=== PATIENT | female | born 1980 | race Caucasian/White ===

== ENCOUNTER 2020-09-21 06:42 | Day surgery (SDC) | payer BC ==
[~2020-09-21] VITALS: Ht 160 cm; Wt 122.9 kg
[2020-09-21] VITALS (9 sets, daily range): BP systolic 104–136; BP diastolic 65–79; PULSE 80–97; TEMP 97.8
[2020-09-21] MEDS ORDERED: ASPIRIN E.C. 8181 MG PO (06:57)
[2020-09-21] MEDS ORDERED: NORVASC2.5 MG PO (06:57)
[2020-09-21] MEDS ORDERED: PRAVACHOL 20MG20 MG PO (06:57)
[2020-09-21] MEDS ORDERED: PAXIL 20MG20 MG PO (06:58)
[2020-09-21 08:04] LABS: HEMATOCRIT 40.5 % (37.0-47.0); HEMOGLOBIN 13.3 g/dl (12.5-16.0); MEAN CELL VOLUME 84 fl (80.0-100.0); MEAN CORPUSCULAR HEMOGLOBIN 27 pg (27.0-31.0); MEAN CORPUSCULAR HGB CONC 33 g/dl (33.0-37.0); MEAN PLATELET VOLUME 9.5 fl (7.4-10.4); PLATELET COUNT 373 K/mm3 (130-400); RED BLOOD COUNT 4.85 M/mm3 (4.10-5.30); REDCELL DISTRIBUTION WIDTH-CV 13.5 % (11.5-14.5)
[2020-09-21 08:10] LABS: INR 1.1 (0.8-3.0); PROTHROMBIN TIME 12.1 SECONDS (9.7-12.8)
[2020-09-21] MEDS ORDERED: NEXPLANON68 MG ID (08:10)
[2020-09-21 08:13] LABS: PARTIAL THROMBOPLASTIN TIME 34.4 SECONDS (26.0-37.0)
[2020-09-21 08:14] LABS: CALCIUM 9.4 mg/dL (8.4-10.2); CREATININE, serum 0.71 (0.52-1.25); POTASSIUM 4.1 mmol/L (3.4-5.0)
--- NOTE | 2020-09-21 09:10 | NUR ---
SEE MERGE DOCUMENTATION FOR MEDICATION ADMINISTRATION TIMES AND INTRA/POST PROCEDURE SEDATION ASSESSMENTS. RIGHT HAND BARBEAU TEST POSITIVE.
[2020-09-21] MEDS ORDERED: LOVAZA1 GM PO (10:30)
--- NOTE | 2020-09-21 12:40 | NUR ---
DC instructions reviewed with pt, who expresses understanding. Air removed from TR band in 2-3 ml increments without issue. Puncture site covered with 2x2 and bandaid. Arm board sent with pt for support of rt wrist. IV DC'd with catheter intact. Pt is steady on feet prior to DC, and has tolerated PO well. Pt is assisted out to family's car by wheelchair with personal belongings.
== END 2020-09-21 12:40 | disposition home or self-care (01) ==
LOC: COL.CAR 06:42
PROVIDERS: Internal Medicine Cardiovascular Disease
DX: R94.39 Abnormal result of other cardiovascular function study (principal); R06.02 Shortness of breath; G47.30 Sleep apnea, unspecified; F41.9 Anxiety disorder, unspecified; I07.1 Rheumatic tricuspid insufficiency; Z88.1 Allergy status to other antibiotic agents; Z20.828 Contact with and (suspected) exposure to other viral communicable diseases; Z91.040 Latex allergy status; Z79.899 Other long term (current) drug therapy; Z91.19 Patient's noncompliance with other medical treatment and regimen
CPT/HCPCS: C1769; J1644; J2250; J3010; Q9967